=== PATIENT | male | born 1950 | race Caucasian/White ===

== ENCOUNTER 2025-01-13 05:53 | Inpatient (IN) ==
[2025-01-13] MEDS ORDERED: IOPAMIDOL 100 ML BOTTLE IV ONE (05:54)
[2025-01-13] MEDS: 0.9 % SODIUM CHLORIDE 1,000 ML IV SCH ×2 (07:23→16:43)
[2025-01-13 07:36] LABS: Basophils # (Auto) 0.03 K/mcL (0.00-0.30); Basophils % (Auto) 0.2 % (0.0-2.0); Eosinophils # (Auto) 0.01 K/mcL (0.00-0.70); Eosinophils % (Auto) 0.1 % (0.0-7.0); Hematocrit 44.9 % (40.1-51.0); Lymphocytes # (Auto) 1.54 K/mcL (1.50-4.80); Lymphocytes % (Auto) 12.4 % (15.5-49.0); Mean Cell Volume 94.5 fL (80.0-100.0); Mean Corpuscular HGB Conc 33.4 g/dL (31.0-36.0); Mean Platelet Volume 10.5 fL (8.8-12.5); Monocytes # (Auto) 0.91 K/mcL (0.10-0.90); Monocytes % (Auto) 7.4 % (1.0-12.0); Neutrophils % (Auto) 78.9 % (38.0-78.0); Platelet Count 600 K/mcL (140-440); RBC 4.75 M/mcL (4.63-6.08); Red Cell Distribution Width 12.7 % (11.5-14.5); WBC 12.4 K/mcL (4.5-11.0)
[2025-01-13 07:47] LABS: ALT/SGPT 28 U/L (<40); AST/SGOT 39 U/L (<40); Albumin 3.6 gm/dL (3.2-5.2); Albumin/Globulin Ratio 0.8 (1.0-2.3); Alkaline Phosphatase 142 U/L (39-117); Bilirubin,Total 0.4 mg/dL (0.1-1.0); Blood Urea Nitrogen 37 mg/dL (8-23); Calcium 10.1 mg/dL (8.6-10.4); Carbon Dioxide 17 mmol/L (22-30); Chloride 103 mmol/L (96-108); Creatine Kinase 219 U/L (24-195); Globulin 4.4 gm/dL (2.2-3.7); Glomerular Filtration Rate 54; Glucose 119 mg/dL (70-105); Potassium 4.1 mmol/L (3.3-5.1); Sodium 144 mmol/L (133-145)
[2025-01-13] MEDS: ONDANSETRON 4 MG/2 ML VIAL IV ONE (08:26)
[2025-01-13] MEDS: cefTRIAXone 2 GM in DEXTROSE 5% IN WATER 50 ML IV ONE (09:14)
[2025-01-13 09:25] LABS: Appearance,Urine Clear (Clear); Bacteria,Urine Few /hpf (0); Bilirubin,Urine Large mg/dL (Negative); Color,Urine Yellow; Glucose,Urine (UA) Negative (Negative); Ketones,Urine >=160 mg/dL (Negative); Leukocyte Esterase,Urine Negative /uL (Negative); Mucus,Urine Few /hpf; Nitrate,Urine Negative (Negative); PH,Urine 5.5 (5.0-9.0); Protein,Urine 100 mg/dL (Negative); Urine Blood Large ery/mcL (Negative); Urine Hyaline Cast 3 /lph (0-2); Urine RBC 104 /hpf (0-3); Urine Squamous Epithelial Cell 0 /hpf (0-4); Urine WBC 1 /hpf (0-4); Urobilinogen,Urine Normal
[2025-01-13] MEDS: AZITHROMYCIN 500 MG in 0.9 % SODIUM CHLORIDE 250 ML IV ONE (09:43)
[2025-01-13] MEDS: 0.9 % SODIUM CHLORIDE 500 ML IV ONE (09:48)
[2025-01-13] MEDS: 0.9 % SODIUM CHLORIDE 10 ML SYRINGE IV SCH (16:43)
[2025-01-13] MEDS: ONDANSETRON 4 MG/2 ML VIAL IV PRN (18:17)
[2025-01-13] MEDS: SENNOSIDES 1 TABLET PO SCH (20:18)
[2025-01-13] MEDS: DOCUSATE SODIUM 100 MG CAPSULE PO SCH (20:18)
[2025-01-13] MEDS ORDERED: ALBUTEROL SULFATE 60 PUFF INHALER INH PRN (21:40)
[2025-01-13] MEDS ORDERED: guaiFENesin 600 MG TAB.SR.12H PO PRN (21:40)
[2025-01-13] MEDS: traZODone HCL 150 MG TABLET PO SCH (22:00)
[2025-01-13] MEDS: traZODone HCL 50 MG TABLET ONE (22:08)
[2025-01-14] MEDS: LORazepam 0.5 MG TABLET PO PRN ×2 (03:24→20:30)
[2025-01-14] MEDS: LORazepam 0.5 MG TABLET ONE (03:25)
[2025-01-14 06:33] LABS: ALT/SGPT 30 U/L (<40); AST/SGOT 43 U/L (<40); Albumin 3.1 gm/dL (3.2-5.2); Albumin/Globulin Ratio 0.8 (1.0-2.3); Alkaline Phosphatase 112 U/L (39-117); Bilirubin,Total 0.3 mg/dL (0.1-1.0); Blood Urea Nitrogen 30 mg/dL (8-23); Calcium 8.9 mg/dL (8.6-10.4); Carbon Dioxide 17 mmol/L (22-30); Chloride 109 mmol/L (96-108); Globulin 3.7 gm/dL (2.2-3.7); Glomerular Filtration Rate 66; Glucose 87 mg/dL (70-105); Potassium 3.5 mmol/L (3.3-5.1); Sodium 144 mmol/L (133-145)
[2025-01-14] MEDS ORDERED: ALBUTEROL SULFATE 2.5 MG/3 ML NEBULIZER NEB PRN (06:34)
[2025-01-14 07:01] LABS: Basophils # (Auto) 0.03 K/mcL (0.00-0.30); Basophils % (Auto) 0.2 % (0.0-2.0); Eosinophils # (Auto) 0.05 K/mcL (0.00-0.70); Eosinophils % (Auto) 0.4 % (0.0-7.0); Hemoglobin 13.4 g/dL (13.7-17.5); Lymphocytes # (Auto) 1.55 K/mcL (1.50-4.80); Lymphocytes % (Auto) 11.4 % (15.5-49.0); Mean Corpuscular HGB Conc 32.7 g/dL (31.0-36.0); Mean Platelet Volume 10.3 fL (8.8-12.5); Monocytes # (Auto) 1.12 K/mcL (0.10-0.90); Monocytes % (Auto) 8.2 % (1.0-12.0); Neutrophils % (Auto) 78.7 % (38.0-78.0); Platelet Count 428 K/mcL (140-440); Red Cell Distribution Width 13.7 % (11.5-14.5); WBC 13.6 K/mcL (4.5-11.0)
[2025-01-14] MEDS: OMEPRAZOLE 20 MG CAPSULE PO SCH (07:54)
[2025-01-14] MEDS: EZETIMIBE 10 MG TABLET PO SCH (08:12)
[2025-01-14] MEDS: ENOXAPARIN 40 MG/0.4 ML SYRINGE SQ SCH (08:12)
[2025-01-14] MEDS: MULTIVIT,THER IRON,CA,FA & MIN 1 TABLET PO SCH (08:13)
[2025-01-14] MEDS: ASCORBIC ACID 500 MG TABLET PO SCH (08:13)
[2025-01-14] MEDS: LISINOPRIL 10 MG TABLET PO SCH (08:13)
[2025-01-14] MEDS: busPIRone 5 MG TABLET PO SCH (08:13)
[2025-01-14] MEDS: GABAPENTIN 100 MG CAPSULE PO SCH (08:14)
[2025-01-14] MEDS ORDERED: traZODone HCL 150 MG TABLET PO SCH (09:00)
[2025-01-14] MEDS: Budesonide-Formoterol 160-4.5 mcg/actuation HFA INH SCH (09:30)
[2025-01-14] MEDS: valACYclovir 500 MG TABLET PO SCH (10:18)
[2025-01-14] MEDS: DOCUSATE SODIUM 100 MG CAPSULE PO SCH (10:23)
[2025-01-14] MEDS: FLUTICASONE PROPIONATE SPRAY.NAS NS SCH (10:23)
[2025-01-14] MEDS: Tiotropium Bromide 2.5 mcg/actuation mist INH SCH (10:24)
[2025-01-14] MEDS: cefTRIAXone 2 GM in DEXTROSE 5% IN WATER 50 ML IV SCH (10:30)
[2025-01-14] MEDS: AZITHROMYCIN 500 MG in DEXTROSE 5% IN WATER 250 ML IV SCH (10:59)
[2025-01-14] MEDS: ACETAMINOPHEN 325 MG TABLET PO PRN (16:16)
[2025-01-14] MEDS: [UNRECOGNIZED DRUG - OTHER] PO SCH (18:45)
[2025-01-14] MEDS: DILTIAZEM HCL 300 MG PO SCH (18:45)
[2025-01-14] MEDS: METHOCARBAMOL 750 MG TABLET PO PRN (20:24)
[2025-01-14] MEDS: MIRTAZAPINE 15 MG TABLET PO SCH (20:28)
[2025-01-14] MEDS: traZODone HCL 100 MG TABLET PO SCH (20:29)
[2025-01-14] MEDS: MELATONIN 3 MG TABLET PO PRN (20:29)
[2025-01-14] MEDS: PRAZOSIN 1 MG CAPSULE PO SCH (20:36)
[2025-01-15 06:00] LABS: Basophils # (Auto) 0.06 K/mcL (0.00-0.30); Basophils % (Auto) 0.7 % (0.0-2.0); Eosinophils # (Auto) 0.41 K/mcL (0.00-0.70); Eosinophils % (Auto) 4.6 % (0.0-7.0); Hemoglobin 11.2 g/dL (13.7-17.5); Lymphocytes # (Auto) 1.83 K/mcL (1.50-4.80); Lymphocytes % (Auto) 20.4 % (15.5-49.0); Mean Cell Volume 99.4 fL (80.0-100.0); Mean Corpuscular HGB Conc 32.9 g/dL (31.0-36.0); Mean Platelet Volume 10.1 fL (8.8-12.5); Monocytes # (Auto) 0.69 K/mcL (0.10-0.90); Monocytes % (Auto) 7.7 % (1.0-12.0); Neutrophils % (Auto) 65.4 % (38.0-78.0); Platelet Count 367 K/mcL (140-440); RBC 3.42 M/mcL (4.63-6.08); Red Cell Distribution Width 13.6 % (11.5-14.5)
[2025-01-15 06:24] LABS: ALT/SGPT 26 U/L (<40); AST/SGOT 25 U/L (<40); Albumin 2.6 gm/dL (3.2-5.2); Alkaline Phosphatase 85 U/L (39-117); Bilirubin,Direct < 0.2 mg/dL (0-0.3); Bilirubin,Total 0.2 mg/dL (0.1-1.0); Blood Urea Nitrogen 18 mg/dL (8-23); Calcium 8.3 mg/dL (8.6-10.4); Carbon Dioxide 20 mmol/L (22-30); Chloride 111 mmol/L (96-108); Globulin 2.7 gm/dL (2.2-3.7); Glomerular Filtration Rate 89; Glucose 98 mg/dL (70-105); Lactate Dehydrogenase 132 U/L (135-225); Phosphorous 2.5 mg/dL (2.5-4.5); Sodium 142 mmol/L (133-145); Triglycerides 195 mg/dL (<150); Uric Acid 8.3 mg/dL (2.5-8.0)
[2025-01-15] MEDS: LORazepam 0.5 MG TABLET PO PRN (08:06)
[2025-01-15] MEDS: IPRATROPIUM/ALBUTEROL 3 ML AMPUL.NEB NEB PRN (08:26)
[2025-01-15] MEDS: CETIRIZINE 10 MG TABLET PO PRN (10:43)
[2025-01-15] MEDS: POTASSIUM CHLORIDE 20 MEQ TABLET PO SCH ×2 (12:07→20:02)
[2025-01-15] MEDS: 0.9 % SODIUM CHLORIDE 1,000 ML IV SCH (17:40)
[2025-01-15 18:22] LABS: Blood Urea Nitrogen 18 mg/dL (8-23); Calcium 8.8 mg/dL (8.6-10.4); Carbon Dioxide 21 mmol/L (22-30); Chloride 110 mmol/L (96-108); Glomerular Filtration Rate 89; Glucose 84 mg/dL (70-105); Potassium 3.2 mmol/L (3.3-5.1); Sodium 145 mmol/L (133-145)
[2025-01-16 06:19] LABS: Basophils # (Auto) 0.06 K/mcL (0.00-0.30); Basophils % (Auto) 0.5 % (0.0-2.0); Eosinophils # (Auto) 0.42 K/mcL (0.00-0.70); Eosinophils % (Auto) 3.3 % (0.0-7.0); Hematocrit 33.5 % (40.1-51.0); Lymphocytes # (Auto) 1.59 K/mcL (1.50-4.80); Lymphocytes % (Auto) 12.6 % (15.5-49.0); Mean Cell Volume 98.2 fL (80.0-100.0); Mean Corpuscular HGB Conc 32.8 g/dL (31.0-36.0); Mean Platelet Volume 10.7 fL (8.8-12.5); Monocytes % (Auto) 7.9 % (1.0-12.0); Platelet Count 375 K/mcL (140-440); RBC 3.41 M/mcL (4.63-6.08); Red Cell Distribution Width 13.5 % (11.5-14.5); WBC 12.6 K/mcL (4.5-11.0)
[2025-01-16 06:48] LABS: ALT/SGPT 29 U/L (<40); AST/SGOT 26 U/L (<40); Albumin 2.7 gm/dL (3.2-5.2); Albumin/Globulin Ratio 0.9 (1.0-2.3); Alkaline Phosphatase 85 U/L (39-117); Bilirubin,Direct < 0.2 mg/dL (0-0.3); Bilirubin,Total 0.3 mg/dL (0.1-1.0); Blood Urea Nitrogen 12 mg/dL (8-23); Calcium 8.5 mg/dL (8.6-10.4); Carbon Dioxide 20 mmol/L (22-30); Chloride 110 mmol/L (96-108); Globulin 2.9 gm/dL (2.2-3.7); Glomerular Filtration Rate 89; Glucose 89 mg/dL (70-105); Lactate Dehydrogenase 155 U/L (135-225); Phosphorous 1.9 mg/dL (2.5-4.5); Potassium 3.8 mmol/L (3.3-5.1); Sodium 141 mmol/L (133-145); Triglycerides 161 mg/dL (<150); Uric Acid 7.3 mg/dL (2.5-8.0)
[2025-01-16] MEDS: NEUTRA PHOS 1 PACKET PO SCH (08:55)
[2025-01-16] MEDS ORDERED: AZITHROMYCIN 250 MG TABLET PO SCH (09:00)
[2025-01-16] MEDS: AZITHROMYCIN 500 MG in DEXTROSE 5% IN WATER 250 ML IV SCH (10:30)
[2025-01-16] MEDS: POTASSIUM PHOSPHATE 20 MEQ in DEXTROSE 5% IN WATER 250 ML IV SCH (11:38)
[2025-01-16] MEDS: traMADol 50 MG TABLET PO SCH (17:14)
[2025-01-16] MEDS: CEFDINIR 300 MG CAPSULE PO SCH (20:10)
[2025-01-17 06:32] LABS: Basophils # (Auto) 0.04 K/mcL (0.00-0.30); Basophils % (Auto) 0.3 % (0.0-2.0); Eosinophils % (Auto) 1.4 % (0.0-7.0); Hematocrit 35.2 % (40.1-51.0); Hemoglobin 11.5 g/dL (13.7-17.5); Lymphocytes # (Auto) 1.22 K/mcL (1.50-4.80); Lymphocytes % (Auto) 8.8 % (15.5-49.0); Mean Cell Volume 101.1 fL (80.0-100.0); Mean Corpuscular HGB Conc 32.7 g/dL (31.0-36.0); Mean Platelet Volume 11.8 fL (8.8-12.5); Monocytes # (Auto) 1.15 K/mcL (0.10-0.90); Monocytes % (Auto) 8.3 % (1.0-12.0); Neutrophils % (Auto) 80.7 % (38.0-78.0); Platelet Count 326 K/mcL (140-440); RBC 3.48 M/mcL (4.63-6.08); WBC 13.8 K/mcL (4.5-11.0)
[2025-01-17] MEDS: RIVAROXABAN 15 MG TABLET PO SCH (08:11)
[2025-01-17 08:48] LABS: ALT/SGPT 26 U/L (<40); AST/SGOT 19 U/L (<40); Albumin 2.8 gm/dL (3.2-5.2); Albumin/Globulin Ratio 0.9 (1.0-2.3); Alkaline Phosphatase 83 U/L (39-117); Bilirubin,Direct < 0.2 mg/dL (0-0.3); Bilirubin,Total 0.4 mg/dL (0.1-1.0); Blood Urea Nitrogen 10 mg/dL (8-23); Calcium 8.6 mg/dL (8.6-10.4); Carbon Dioxide 22 mmol/L (22-30); Chloride 104 mmol/L (96-108); Globulin 3.2 gm/dL (2.2-3.7); Glomerular Filtration Rate 89; Glucose 90 mg/dL (70-105); Lactate Dehydrogenase 144 U/L (135-225); Phosphorous 2.4 mg/dL (2.5-4.5); Potassium 3.6 mmol/L (3.3-5.1); Sodium 139 mmol/L (133-145); Triglycerides 113 mg/dL (<150); Uric Acid 6.1 mg/dL (2.5-8.0)
[2025-01-17] MEDS: ACETAMINOPHEN 1,000 MG/100 ML BAG IV SCH (16:06)
[2025-01-17 17:04] LABS: Basophils # (Auto) 0.04 K/mcL (0.00-0.30); Basophils % (Auto) 0.2 % (0.0-2.0); Eosinophils # (Auto) 0 K/mcL (0.00-0.70); Eosinophils % (Auto) 0 % (0.0-7.0); Hematocrit 31.9 % (40.1-51.0); Hemoglobin 10.8 g/dL (13.7-17.5); Lymphocytes # (Auto) 1.25 K/mcL (1.50-4.80); Lymphocytes % (Auto) 6.7 % (15.5-49.0); Mean Cell Volume 95.5 fL (80.0-100.0); Mean Corpuscular HGB Conc 33.9 g/dL (31.0-36.0); Mean Platelet Volume 11.4 fL (8.8-12.5); Monocytes # (Auto) 1.83 K/mcL (0.10-0.90); Monocytes % (Auto) 9.9 % (1.0-12.0); Neutrophils % (Auto) 82.8 % (38.0-78.0); Platelet Count 322 K/mcL (140-440); RBC 3.34 M/mcL (4.63-6.08); Red Cell Distribution Width 13.2 % (11.5-14.5); WBC 18.6 K/mcL (4.5-11.0)
[2025-01-17] MEDS ORDERED: IOPAMIDOL 100 ML BOTTLE IV ONE (17:56)
[2025-01-17] MEDS: POTASSIUM PHOSPHATE 20 MEQ in DEXTROSE 5% IN WATER 250 ML IV SCH (18:02)
[2025-01-17] MEDS: LACTATED RINGERS 1,000 ML IV SCH (20:40)
[2025-01-17] MEDS: DEXTROSE 5% IN WATER 100 ML IV ONE (21:00)
[2025-01-17] MEDS: DOXYCYCLINE 100 MG in DEXTROSE 5% IN WATER 100 ML IV SCH (21:00)
[2025-01-17] MEDS: cefTRIAXone 2 GM in DEXTROSE 5% IN WATER 50 ML IV SCH (21:30)
[2025-01-17] MEDS: DEXTROSE 5% IN WATER 50 ML IV ONE (22:27)
[2025-01-18] MEDS: cefTRIAXone 1 GM VIAL IV SCH (01:21)
[2025-01-18 06:10] LABS: Basophils # (Auto) 0.06 K/mcL (0.00-0.30); Basophils % (Auto) 0.4 % (0.0-2.0); Eosinophils # (Auto) 0.07 K/mcL (0.00-0.70); Eosinophils % (Auto) 0.5 % (0.0-7.0); Hematocrit 32.8 % (40.1-51.0); Hemoglobin 11.1 g/dL (13.7-17.5); Lymphocytes % (Auto) 7.3 % (15.5-49.0); Mean Cell Volume 95.9 fL (80.0-100.0); Mean Corpuscular HGB Conc 33.8 g/dL (31.0-36.0); Mean Platelet Volume 11.7 fL (8.8-12.5); Monocytes # (Auto) 1.45 K/mcL (0.10-0.90); Monocytes % (Auto) 9.6 % (1.0-12.0); Neutrophils % (Auto) 81.7 % (38.0-78.0); Platelet Count 333 K/mcL (140-440); RBC 3.42 M/mcL (4.63-6.08); Red Cell Distribution Width 13.3 % (11.5-14.5); WBC 15.1 K/mcL (4.5-11.0)
[2025-01-18 06:41] LABS: ALT/SGPT 23 U/L (<40); AST/SGOT 16 U/L (<40); Albumin 2.8 gm/dL (3.2-5.2); Albumin/Globulin Ratio 0.8 (1.0-2.3); Alkaline Phosphatase 80 U/L (39-117); Bilirubin,Direct < 0.2 mg/dL (0-0.3); Bilirubin,Total 0.3 mg/dL (0.1-1.0); Blood Urea Nitrogen 11 mg/dL (8-23); Calcium 8.8 mg/dL (8.6-10.4); Carbon Dioxide 22 mmol/L (22-30); Chloride 102 mmol/L (96-108); Globulin 3.4 gm/dL (2.2-3.7); Glomerular Filtration Rate 84; Glucose 93 mg/dL (70-105); Lactate Dehydrogenase 131 U/L (135-225); Phosphorous 2.4 mg/dL (2.5-4.5); Potassium 3.6 mmol/L (3.3-5.1); Sodium 138 mmol/L (133-145); Triglycerides 80 mg/dL (<150); Uric Acid 5.6 mg/dL (2.5-8.0)
[2025-01-18] MEDS: traMADol 50 MG TABLET PO PRN (11:27)
[2025-01-18] MEDS: POTASSIUM PHOSPHATE 40 MEQ in DEXTROSE 5% IN WATER 500 ML IV SCH (13:45)
[2025-01-18] MEDS: IBUPROFEN 800 MG TABLET PO PRN (23:11)
[2025-01-19 06:04] LABS: Basophils # (Auto) 0.07 K/mcL (0.00-0.30); Basophils % (Auto) 0.6 % (0.0-2.0); Eosinophils # (Auto) 0.16 K/mcL (0.00-0.70); Eosinophils % (Auto) 1.3 % (0.0-7.0); Hematocrit 28.4 % (40.1-51.0); Hemoglobin 9.6 g/dL (13.7-17.5); Lymphocytes # (Auto) 1.41 K/mcL (1.50-4.80); Lymphocytes % (Auto) 11.8 % (15.5-49.0); Mean Cell Volume 96.9 fL (80.0-100.0); Mean Corpuscular HGB Conc 33.8 g/dL (31.0-36.0); Mean Platelet Volume 11.9 fL (8.8-12.5); Monocytes # (Auto) 1.55 K/mcL (0.10-0.90); Neutrophils % (Auto) 72.9 % (38.0-78.0); Platelet Count 317 K/mcL (140-440); RBC 2.93 M/mcL (4.63-6.08); Red Cell Distribution Width 13.8 % (11.5-14.5); WBC 11.9 K/mcL (4.5-11.0)
[2025-01-19 06:18] LABS: ALT/SGPT 30 U/L (<40); AST/SGOT 29 U/L (<40); Albumin 2.5 gm/dL (3.2-5.2); Albumin/Globulin Ratio 0.8 (1.0-2.3); Alkaline Phosphatase 69 U/L (39-117); Bilirubin,Direct < 0.2 mg/dL (0-0.3); Bilirubin,Total 0.2 mg/dL (0.1-1.0); Blood Urea Nitrogen 15 mg/dL (8-23); Calcium 8.5 mg/dL (8.6-10.4); Carbon Dioxide 23 mmol/L (22-30); Chloride 103 mmol/L (96-108); Glomerular Filtration Rate 74; Glucose 96 mg/dL (70-105); Lactate Dehydrogenase 128 U/L (135-225); Phosphorous 3.7 mg/dL (2.5-4.5); Potassium 3.6 mmol/L (3.3-5.1); Sodium 138 mmol/L (133-145); Triglycerides 82 mg/dL (<150); Uric Acid 5.8 mg/dL (2.5-8.0)
[2025-01-19] MEDS: LEVOFLOXACIN 750 MG/150 ML BAG IV ONE (13:30)
[2025-01-19] MEDS: DOXYCYCLINE HYCLATE 100 MG TABLET.ORL PO SCH (20:43)
[2025-01-20 05:36] LABS: Basophils # (Auto) 0.06 K/mcL (0.00-0.30); Basophils % (Auto) 0.7 % (0.0-2.0); Eosinophils # (Auto) 0.27 K/mcL (0.00-0.70); Hematocrit 29.2 % (40.1-51.0); Hemoglobin 9.8 g/dL (13.7-17.5); Lymphocytes # (Auto) 1.24 K/mcL (1.50-4.80); Lymphocytes % (Auto) 13.7 % (15.5-49.0); Mean Corpuscular HGB Conc 33.6 g/dL (31.0-36.0); Mean Platelet Volume 11.2 fL (8.8-12.5); Monocytes # (Auto) 0.93 K/mcL (0.10-0.90); Monocytes % (Auto) 10.3 % (1.0-12.0); Neutrophils % (Auto) 72.1 % (38.0-78.0); Platelet Count 360 K/mcL (140-440); RBC 3.01 M/mcL (4.63-6.08); Red Cell Distribution Width 13.7 % (11.5-14.5)
[2025-01-20 06:01] LABS: ALT/SGPT 50 U/L (<40); AST/SGOT 45 U/L (<40); Albumin 2.6 gm/dL (3.2-5.2); Albumin/Globulin Ratio 0.8 (1.0-2.3); Alkaline Phosphatase 79 U/L (39-117); Bilirubin,Direct < 0.2 mg/dL (0-0.3); Bilirubin,Total 0.3 mg/dL (0.1-1.0); Blood Urea Nitrogen 16 mg/dL (8-23); Calcium 8.8 mg/dL (8.6-10.4); Carbon Dioxide 22 mmol/L (22-30); Chloride 102 mmol/L (96-108); Globulin 3.1 gm/dL (2.2-3.7); Glomerular Filtration Rate 74; Glucose 111 mg/dL (70-105); Lactate Dehydrogenase 126 U/L (135-225); Phosphorous 2.6 mg/dL (2.5-4.5); Potassium 3.8 mmol/L (3.3-5.1); Sodium 138 mmol/L (133-145); Triglycerides 104 mg/dL (<150); Uric Acid 4.9 mg/dL (2.5-8.0)
[2025-01-20 07:53] VITALS: TEMP 98.1; O2SAT 97
[2025-01-20] MEDS: LEVOFLOXACIN 750 MG TABLET PO SCH (08:03)
== END 2025-01-20 13:06 | disposition home health service (06) | DRG 871 ==
LOC: ED 05:53 → MEDSUR 13:32
PROVIDERS: ADMIT Internal Medicine; ATTEND Student in an Organized Health Care Education/Training Program